=== PATIENT | female | born 1955 | race Caucasian/White ===

== ENCOUNTER 2018-01-19 23:27 | Inpatient (IN) | payer MEDICARE, OTHER ==
[2018-01-20] MEDS: OCTREOTIDE 500 MCG in SOD CHLORIDE 0.9% 49 ML IV (01:08)
[2018-01-20] MEDS: PANTOPRAZOLE IV 80 MG in SOD CHLORIDE 0.9% 100 ML IV (01:08)
[2018-01-20] MEDS: SOD CHLORIDE 0.9% 1,000 ML IV (01:31)
[2018-01-20] MEDS: PANTOPRAZOLE IV 80 MG in SOD CHLORIDE 0.9% 100 ML IVPB (01:43)
[2018-01-20] MEDS: ONDANSETRON 4 MG INJ IV (01:43)
[2018-01-20] MEDS: OCTREOTIDE 50 MCG in SOD CHLORIDE 0.9% 25 ML IVPB (01:44)
[2018-01-20 01:56] LABS: ADD MAN DIFF? NO
[2018-01-20 01:58] LABS: WHITE BLOOD COUNT 15.3 10^3/ul (4.8-10.8)
[2018-01-20 01:58] LABS: ABNORMAL IP MESSAGE 1; BASOPHILS % 0.1 % (0.0-2.0); HEMOGLOBIN 14.8 g/dl (12.0-16.0); LYMPHOCYTES # 0.6 10^3/ul (0.8-2.9); LYMPHOCYTES % 3.7 % (15.0-51.0); MEAN CORPUSCULAR HEMOGLOBIN 30.9 pg (29.0-33.0); MEAN CORPUSCULAR HGB CONC 33.6 g/dl (32.0-37.0); MEAN CORPUSCULAR VOLUME 91.9 fl (82.0-101.0); MEAN PLATELET VOLUME 11.2 fl (7.4-10.4); MONOCYTE # 0.6 10^3/ul (0.3-0.9); MONOCYTES % 3.8 % (0.0-11.0); NEUTROPHIL # 14.1 10^3/ul (1.6-7.5); PLATELET COUNT 217 10^3/UL (140-415); RED BLOOD COUNT 4.79 10^6/ul (4.20-5.40); RED CELL DISTRIBUTION WIDTH 13.8 % (11.5-14.5)
[2018-01-20 02:06] LABS: POSITIVE DIFF @See below
[2018-01-20 02:13] LABS: INR 1.02; PARTIAL THROMBOPLASTIN TIME 30.9 Sec (25.0-35.0); PROTIME 13.5 Sec (11.9-14.9); PT RATIO 1.1
[2018-01-20 02:14] LABS: ALANINE AMINOTRANSFERASE 32 IU/L (13-69); ALBUMIN 4.1 g/dl (3.3-4.9); ALBUMIN/GLOBULIN RATIO 1.13; ALKALINE PHOSPHATASE 115 IU/L (42-121); ANION GAP 18 (8-16); ASPARTATE AMINO TRANSFERASE 20 IU/L (15-46); BILIRUBIN,INDIRECT 0.4 mg/dl (0-1.1); BILIRUBIN,TOTAL 0.4 mg/dl (0.2-1.3); BLOOD UREA NITROGEN 18 mg/dl (7-20); CALCIUM 9.2 mg/dl (8.4-10.2); CARBON DIOXIDE 28 mmol/L (21-31); CHLORIDE 104 mmol/L (97-110); CREATININE 0.72 mg/dl (0.44-1.00); GLUCOSE 106 mg/dl (70-220); LIPASE 57 U/L (23-300); POTASSIUM 4.1 mmol/L (3.5-5.1); SODIUM 146 mmol/L (135-144); TOTAL PROTEIN 7.7 g/dl (6.1-8.1)
[2018-01-20 02:28] LABS: TROPONIN-I < 0.012 ng/ml (0.00-0.12)
[2018-01-20] MEDS ORDERED: morphine 2 MG INJ IV (12:00)
[2018-01-20] MEDS ORDERED: ONDANSETRON 4 MG INJ IV (12:00)
[2018-01-20] MEDS: D5W-0.45 NACL + KCL 20 MEQ 1,000 ML IV (12:53)
[2018-01-20 16:17] LABS: HEMATOCRIT 40.4 % (37.0-47.0); HEMOGLOBIN 13.4 g/dl (12.0-16.0)
[2018-01-21] MEDS: D5W-0.45 NACL + KCL 20 MEQ 1,000 ML IV ×3 (00:26→09:45)
[2018-01-21] MEDS: PANTOPRAZOLE 40 MG INJ IV (05:28)
[2018-01-21 08:56] LABS: ADD MAN DIFF? NO
[2018-01-21 09:00] LABS: BASOPHILS % 0.2 % (0.0-2.0); EOSINOPHILS # 0.1 10^3/ul (0.0-0.5); EOSINOPHILS % 0.7 % (0.0-7.0); HEMATOCRIT 38.9 % (37.0-47.0); HEMOGLOBIN 12.8 g/dl (12.0-16.0); LYMPHOCYTES # 1.4 10^3/ul (0.8-2.9); LYMPHOCYTES % 14.4 % (15.0-51.0); MEAN CORPUSCULAR HEMOGLOBIN 30.8 pg (29.0-33.0); MEAN CORPUSCULAR HGB CONC 32.9 g/dl (32.0-37.0); MEAN CORPUSCULAR VOLUME 93.7 fl (82.0-101.0); MEAN PLATELET VOLUME 11.6 fl (7.4-10.4); MONOCYTE # 0.7 10^3/ul (0.3-0.9); MONOCYTES % 6.9 % (0.0-11.0); NEUTROPHIL # 7.3 10^3/ul (1.6-7.5); NEUTROPHILS % 77.4 % (39.0-77.0); PLATELET COUNT 190 10^3/UL (140-415); RED BLOOD COUNT 4.15 10^6/ul (4.20-5.40); RED CELL DISTRIBUTION WIDTH 13.8 % (11.5-14.5)
[2018-01-21 09:00] LABS: WHITE BLOOD COUNT 9.5 10^3/ul (4.8-10.8)
[2018-01-21 09:26] LABS: ALANINE AMINOTRANSFERASE 27 IU/L (13-69); ALBUMIN 3.7 g/dl (3.3-4.9); ALBUMIN/GLOBULIN RATIO 1.08; ALKALINE PHOSPHATASE 109 IU/L (42-121); ANION GAP 16 (8-16); ASPARTATE AMINO TRANSFERASE 19 IU/L (15-46); BILIRUBIN,INDIRECT 0.6 mg/dl (0-1.1); BILIRUBIN,TOTAL 0.6 mg/dl (0.2-1.3); BLOOD UREA NITROGEN 12 mg/dl (7-20); CALCIUM 9.1 mg/dl (8.4-10.2); CARBON DIOXIDE 26 mmol/L (21-31); CHLORIDE 106 mmol/L (97-110); CREATININE 0.68 mg/dl (0.44-1.00); GLUCOSE 93 mg/dl (70-220); POTASSIUM 4.1 mmol/L (3.5-5.1); SODIUM 144 mmol/L (135-144); TOTAL PROTEIN 7.1 g/dl (6.1-8.1)
[2018-01-21] MEDS: PROPOFOL 20 ML (18:23)
[2018-01-21] MEDS: FENTAnyl 50 MCG/ML VIAL (18:23)
[2018-01-21] MEDS: MIDAZOLAM 1 MG/ML 2 ML INJ (18:23)
[2018-01-21] MEDS ORDERED: LABETALOL HCL 20MG INJ IV (18:30)
[2018-01-21] MEDS ORDERED: ONDANSETRON 4 MG INJ IV (18:30)
[2018-01-21] MEDS ORDERED: hydrALAzine 20 MG INJ IV (18:30)
[2018-01-22] MEDS: D5W-0.45 NACL + KCL 20 MEQ 1,000 ML IV ×4 (01:26→22:46)
[2018-01-22] MEDS: PANTOPRAZOLE 40 MG INJ IV (06:31)
[2018-01-22 09:04] LABS: ADD MAN DIFF? NO
[2018-01-22 09:13] LABS: WHITE BLOOD COUNT 10.5 10^3/ul (4.8-10.8)
[2018-01-22 09:13] LABS: BASOPHILS % 0.2 % (0.0-2.0); EOSINOPHILS % 0.1 % (0.0-7.0); HEMOGLOBIN 12.2 g/dl (12.0-16.0); LYMPHOCYTES % 9.8 % (15.0-51.0); MEAN CORPUSCULAR HEMOGLOBIN 30.4 pg (29.0-33.0); MEAN CORPUSCULAR VOLUME 92.3 fl (82.0-101.0); MEAN PLATELET VOLUME 11.9 fl (7.4-10.4); MONOCYTE # 0.8 10^3/ul (0.3-0.9); MONOCYTES % 7.7 % (0.0-11.0); NEUTROPHIL # 8.6 10^3/ul (1.6-7.5); PLATELET COUNT 171 10^3/UL (140-415); RED BLOOD COUNT 4.01 10^6/ul (4.20-5.40); RED CELL DISTRIBUTION WIDTH 13.7 % (11.5-14.5)
[2018-01-22 09:38] LABS: ANION GAP 14 (8-16); BLOOD UREA NITROGEN 11 mg/dl (7-20); CALCIUM 8.9 mg/dl (8.4-10.2); CARBON DIOXIDE 26 mmol/L (21-31); CHLORIDE 105 mmol/L (97-110); CREATININE 0.62 mg/dl (0.44-1.00); GLUCOSE 92 mg/dl (70-220); POTASSIUM 3.8 mmol/L (3.5-5.1); SODIUM 141 mmol/L (135-144)
[2018-01-23] MEDS: PANTOPRAZOLE (EC) 40 MG TAB PO (05:49)
[2018-01-23 10:44] LABS: ADD MAN DIFF? NO
[2018-01-23 10:48] LABS: WHITE BLOOD COUNT 8.8 10^3/ul (4.8-10.8)
[2018-01-23 10:48] LABS: BASOPHILS % 0.3 % (0.0-2.0); EOSINOPHILS % 0.3 % (0.0-7.0); HEMATOCRIT 39.2 % (37.0-47.0); HEMOGLOBIN 13.1 g/dl (12.0-16.0); LYMPHOCYTES # 1.4 10^3/ul (0.8-2.9); LYMPHOCYTES % 15.6 % (15.0-51.0); MEAN CORPUSCULAR HEMOGLOBIN 30.4 pg (29.0-33.0); MEAN CORPUSCULAR HGB CONC 33.4 g/dl (32.0-37.0); MEAN PLATELET VOLUME 11.5 fl (7.4-10.4); MONOCYTE # 0.7 10^3/ul (0.3-0.9); MONOCYTES % 7.5 % (0.0-11.0); NEUTROPHIL # 6.7 10^3/ul (1.6-7.5); NEUTROPHILS % 76.1 % (39.0-77.0); PLATELET COUNT 171 10^3/UL (140-415); RED BLOOD COUNT 4.31 10^6/ul (4.20-5.40); RED CELL DISTRIBUTION WIDTH 13.4 % (11.5-14.5)
[2018-01-23 11:05] LABS: ANION GAP 14 (8-16); BLOOD UREA NITROGEN 12 mg/dl (7-20); CALCIUM 9.2 mg/dl (8.4-10.2); CARBON DIOXIDE 26 mmol/L (21-31); CHLORIDE 105 mmol/L (97-110); CREATININE 0.55 mg/dl (0.44-1.00); GLUCOSE 97 mg/dl (70-220); POTASSIUM 3.9 mmol/L (3.5-5.1); SODIUM 141 mmol/L (135-144)
[2018-01-23] MEDS ORDERED: BISACODYL 10 MG SUPP PR (12:00)
[2018-01-23] MEDS: DOCUSATE SODIUM 100 MG CAP PO ×2 (13:00→21:47)
[2018-01-24] MEDS: PANTOPRAZOLE (EC) 40 MG TAB PO (06:06)
[2018-01-24 06:40] LABS: ADD MAN DIFF? NO
[2018-01-24 06:46] LABS: BASOPHILS % 0.3 % (0.0-2.0); EOSINOPHILS # 0.1 10^3/ul (0.0-0.5); EOSINOPHILS % 1.3 % (0.0-7.0); LYMPHOCYTES % 22.8 % (15.0-51.0); MEAN CORPUSCULAR HEMOGLOBIN 30.7 pg (29.0-33.0); MEAN CORPUSCULAR HGB CONC 34.1 g/dl (32.0-37.0); MEAN CORPUSCULAR VOLUME 89.9 fl (82.0-101.0); MEAN PLATELET VOLUME 11.8 fl (7.4-10.4); MONOCYTE # 0.7 10^3/ul (0.3-0.9); MONOCYTES % 8.1 % (0.0-11.0); NEUTROPHILS % 67.2 % (39.0-77.0); PLATELET COUNT 183 10^3/UL (140-415); RED BLOOD COUNT 4.56 10^6/ul (4.20-5.40); RED CELL DISTRIBUTION WIDTH 13.3 % (11.5-14.5)
[2018-01-24 07:08] LABS: ANION GAP 18 (8-16); BLOOD UREA NITROGEN 13 mg/dl (7-20); CALCIUM 9.4 mg/dl (8.4-10.2); CARBON DIOXIDE 24 mmol/L (21-31); CHLORIDE 106 mmol/L (97-110); CREATININE 0.57 mg/dl (0.44-1.00); GLUCOSE 91 mg/dl (70-220); POTASSIUM 3.5 mmol/L (3.5-5.1); SODIUM 144 mmol/L (135-144)
[2018-01-24] MEDS: DOCUSATE SODIUM 100 MG CAP PO ×2 (09:46→21:16)
[2018-01-25] MEDS: PANTOPRAZOLE (EC) 40 MG TAB PO (06:13)
[2018-01-25 06:24] LABS: ADD MAN DIFF? NO
[2018-01-25 06:42] LABS: WHITE BLOOD COUNT 6.7 10^3/ul (4.8-10.8)
[2018-01-25 06:42] LABS: BASOPHILS % 0.6 % (0.0-2.0); EOSINOPHILS # 0.2 10^3/ul (0.0-0.5); LYMPHOCYTES # 1.7 10^3/ul (0.8-2.9); LYMPHOCYTES % 25.6 % (15.0-51.0); MEAN CORPUSCULAR HEMOGLOBIN 30.5 pg (29.0-33.0); MEAN CORPUSCULAR HGB CONC 33.3 g/dl (32.0-37.0); MEAN CORPUSCULAR VOLUME 91.5 fl (82.0-101.0); MEAN PLATELET VOLUME 11.6 fl (7.4-10.4); MONOCYTE # 0.6 10^3/ul (0.3-0.9); MONOCYTES % 9.3 % (0.0-11.0); NEUTROPHIL # 4.1 10^3/ul (1.6-7.5); NEUTROPHILS % 61.2 % (39.0-77.0); PLATELET COUNT 194 10^3/UL (140-415); RED BLOOD COUNT 4.59 10^6/ul (4.20-5.40); RED CELL DISTRIBUTION WIDTH 13.4 % (11.5-14.5)
[2018-01-25 06:51] LABS: ANION GAP 17 (8-16); BLOOD UREA NITROGEN 14 mg/dl (7-20); CALCIUM 9.6 mg/dl (8.4-10.2); CARBON DIOXIDE 26 mmol/L (21-31); CHLORIDE 107 mmol/L (97-110); CREATININE 0.59 mg/dl (0.44-1.00); GLUCOSE 82 mg/dl (70-220); POTASSIUM 3.8 mmol/L (3.5-5.1); SODIUM 146 mmol/L (135-144)
[2018-01-25] MEDS: DOCUSATE SODIUM 100 MG CAP PO ×2 (08:02→20:03)
[2018-01-25] MEDS: LACTULOSE 30ML CUP PO (20:03)
[2018-01-26] MEDS: PANTOPRAZOLE (EC) 40 MG TAB PO (06:13)
[2018-01-26] MEDS: DOCUSATE SODIUM 100 MG CAP PO ×2 (07:58→20:22)
[2018-01-26] MEDS: NA PHOSPHATE/BIPHOS 133 ML ENEMA PR (14:31)
[2018-01-26] MEDS: MAGNESIUM CITRATE 300 ML BTL PO (17:50)
[2018-01-27] MEDS: PANTOPRAZOLE (EC) 40 MG TAB PO (06:00)
[2018-01-27] MEDS: DOCUSATE SODIUM 100 MG CAP PO (08:36)
[2018-01-27 11:44] LABS: ANION GAP 13 (8-16); BLOOD UREA NITROGEN 17 mg/dl (7-20); CALCIUM 9.3 mg/dl (8.4-10.2); CARBON DIOXIDE 30 mmol/L (21-31); CHLORIDE 103 mmol/L (97-110); CREATININE 0.67 mg/dl (0.44-1.00); GLUCOSE 97 mg/dl (70-220); SODIUM 142 mmol/L (135-144)
== END 2018-01-27 17:06 | DRG 381 ==
LOC: E/R 23:27 → PP2 01-22 20:52 → MS4 01-20 03:16
PROC: 0DB78ZX Excision of Stomach, Pylorus, Via Natural or Artificial Opening Endoscopic, Diagnostic (ICD-10-PCS; principal; 2018-01-21 17:00)
PROC: 0DD48ZX Extraction of Esophagogastric Junction, Via Natural or Artificial Opening Endoscopic, Diagnostic (ICD-10-PCS; 2018-01-21 17:00)
DX: K22.11 Ulcer of esophagus with bleeding (principal); G93.1 Anoxic brain damage, not elsewhere classified; K21.0 Gastro-esophageal reflux disease with esophagitis; G20 Parkinson's disease; I10 Essential (primary) hypertension; K29.70 Gastritis, unspecified, without bleeding; K59.00 Constipation, unspecified; K44.9 Diaphragmatic hernia without obstruction or gangrene; Z99.3 Dependence on wheelchair; Z87.891 Personal history of nicotine dependence; Z91.81 History of falling
CPT/HCPCS: 71045; 80048; 80053; 82962; 83690; 83735; 84484; 85014; 85018; 85025; 85610; 85730; 86850; 86900; 86901; 87040; 87081; 93005